=== PATIENT | female | born 1970 | race Caucasian/White ===

== ENCOUNTER 2023-11-18 09:58 | Emergency (ER) | payer OTHER, SELFPAY ==
[2023-11-18 10:18] VITALS: BP 134/83
[2023-11-18 11:36] LABS: % Basophils 0.5 % (0-2); % Eosinophils 1.9 % (0-6); % Immature Granulocytes 0.5 % (0-0.5); % Lymphocytes 16.3 % (20.5-51.1); % Monocytes 5.3 % (1.7-9.3); % Neutrophils 75.5 % (42.2-75.2); Absolute Eosinophils 0.2 10^3/uL (0-0.7); Absolute Lymphocytes 1.3 10^3/uL (1.2-3.4); Absolute Monocytes 0.4 10^3/uL (0.1-0.6); Absolute Neutrophils 6.1 10^3/uL (1.4-6.5); Hematocrit 35.7 % (37.0-47.0); Hemoglobin 12.4 g/dL (12.0-16.0); Mean Corp Hgb Conc. 34.7 g/dL (33.0-37.0); Mean Corpuscular Hgb 30.5 pg (27.0-31.0); Mean Corpuscular Volume 87.7 fL (81.0-99.0); Mean Platelet Volume 9.7 fL (7.4-10.4); Nucleated Red Blood Cells % 0 %; Platelet Count 236 10^3/uL (130-400); Red Blood Cell Count 4.07 10^6/uL (4.20-5.40); Red Cell Dist. Width 12.1 % (11.5-14.5)
[2023-11-18 11:59] LABS: ALT (SGPT) 25 U/L (0-35); AST (SGOT) 32 U/L (14-36); Albumin 4.2 g/dl (3.5-5.0); Alkaline Phosphatase 85 U/L (38-126); Blood Urea Nitrogen 20 mg/dl (7-17); Calcium 9.6 mg/dl (8.4-10.2); Carbon Dioxide 29 mmol/L (22-30); Chloride 105 mmol/L (98-107); Glucose 132 mg/dl (70-99); Lipase 128 U/L (23-300); Potassium 4.4 mmol/L (3.5-5.1); Sodium 137 mmol/L (135-145); Total Bilirubin 0.6 mg/dl (0.2-1.3); Total Protein 6.9 g/dl (6.3-8.2); eGFR > 60.00
--- NOTE | 2023-11-18 12:47 | ED.GENMED ---
History of Present Illness
General
Chief Complaint: Abdominal Pain
Source: patient
Time Seen by Provider: 11/18/23 11:50
History of Present Illness
History of Present Illness:
53-year-old female with past medical history of anxiety presenting to the emergency department for evaluation after she experienced sudden onset right upper quadrant abdominal pain associated with nausea about 30 minutes prior to arrival to the
emergency department. Pain is described to be moderate to severe, now currently felt more in the right lower part of the abdomen radiating towards her groin, constant and sharp. Patient denies any fevers, chills, rigors. Had been in her usual
state of health prior to the symptoms starting. She did not take thing for pain prior to arrival. Notes she has had a kidney stone before however this feels different as she is currently endorsing urinary frequency. Denies any dysuria, urgency,
hematuria. No other concerns at this time.
Past History
Past History
ED Past Medical History: Psychiatric
ED Past Surgical History:
Social History
Tobacco: Non-smoker
Alcohol: Occasional
Drug: None
Personal:
Living: with family
Review of Systems
Review of Systems
All Other Systems: ROS reviewed and negative except as documented in HPI and ROS
Phy Exam
Physical Exam
Physical Exam:
GENERAL: Alert , appears very uncomfortable, constant moaning
EYE: clear conjunctiva b/l
HEAD: NCAT
ENT: o/p clr, mmm.
CARDIAC: Regular rate and rhythm .
LUNGS: Clear breath sounds bilaterally, no acute respiratory distress, no wheezes/rales/rhonchi
ABDOMEN: Soft, tenderness within entirety of right abdomen, no r/g, no CVAT
NEUROLOGICAL: Alert and oriented
SKIN: Warm and dry, skin intact.
MUSCULOSKELETAL: No edema, well perfused.
PSYCH: Normal and appropriate interaction.
Scores
Heart Failure Risk
Heart Failure Risk Score: Not Applicable
Heart Score for Chest Pain Patients
STEMI patient?: Not applicable
Withdrawal Assessment of Alcohol
Withdrawal Assessment Completed?: Not applicable
Course
Orders/Labs/Results
Orders:
Orders
11/18/23 11:11
IV Insert/Care/Rem.- Treatment PRN
11/18/23 11:21
Complete Blood Count/With Diff Urgent
Comprehensive Metabolic Panel Urgent
Lipase Urgent
11/18/23 11:50
US Abdomen Complete/Upper Urgent
Comment:
Reason For Exam: RUQ pain
11/18/23 11:57
Ketorolac [Toradol] 30 mg IV NOW STA
Ondansetron Injectable [Zofran] 4 mg IV NOW STA
11/18/23 12:43
Ketorolac [Toradol] 60 mg IM NOW STA
Ondansetron Orally Disint [Zofran Odt (Orally Disintegrating)] 4 mg PO NOW STA
11/18/23 12:45
CT Abd/pel Without Iv Or Oral Urgent
Comment:
Reason For Exam: right flank pain, urinary urgency
Abnormal Lab Results
11/18/23
11:21
RBC 4.07 L 10^6/uL
(4.20-5.40)
Hct 35.7 L %
(37.0-47.0)
Neutrophils % 75.5 H %
(42.2-75.2)
Lymphocytes % 16.3 L %
(20.5-51.1)
BUN 20 H mg/dl
(7-17)
Glucose 132 H mg/dl
(70-99)
11/18/23 11:21
11/18/23 11:21
Vital Signs
Initial and Last Documented VS:
Initial Vital Signs
Temp Pulse Resp BP Pulse Ox
98.2 F 78 18 134/83 98
11/18/23 10:18 11/18/23 10:18 11/18/23 10:18 11/18/23 10:18 11/18/23 10:18
Last Documented Vital Signs
Temp Pulse Resp BP Pulse Ox
98.2 F 68 18 134/79 98
11/18/23 10:18 11/18/23 15:54 11/18/23 15:54 11/18/23 15:54 11/18/23 10:18
MDM/Problems Addressed
Differential Diagnosis Includes:
Cholelithiasis, cholecystitis, renal/ureteral colic, urinary tract infection/pyelonephritis
MDM/Problems Addressed:
53-year-old female presenting to the emergency department for evaluation of sudden onset right-sided abdominal pain, initially in the right upper quadrant but now in the mid to lower abdomen radiating to the groin. Given pain started more in the
right upper quadrant will obtain ultrasound to evaluate for possible gallstones/cholecystitis. If this is negative I do have some suspicion that there could be renal/ureteral colic or UTI as potential cause for symptoms. Labs and urine ordered.
Pain control with Toradol and Zofran. Reassessment following
*Radiology
Radiology exam reviewed: radiology read reviewed
*Pulse Oximetry
Patient hypoxic: no
*Critical Care Note
Total Time (30-74mins, 75-104mins- exclusive of procedures): Not Applicable
Comment
Comment:
Ultrasound shows diffuse hepatic steatosis and mild hepatomegaly. No evidence for cholelithiasis or cholecystitis. CT ordered. Disposition pending
Patient Management
Escalation/DeEscalation of care consider admission/obs:
Patient's CAT scan showed a mild right acute hydroureteronephrosis secondary to 3.7 mm obstructing stone within the distal right ureter. Patient did note some improvement with medicine while here. She was provided with a printout of the CT report.
Sent home with medications for symptomatic relief. Aware of return precautions to the ER. Urology follow-up information provided. Patient is otherwise stable for discharge home.
ED Attending Note
-
Portions of this chart may have been created with voice recognition software.� Occasional wrong word or��sound alike� substitutions may have occurred due to the inherent limitations of voice recognition software.
Discharge Plan
Departure
Patient Disposition: Home (Routine Discharge)
Date of Disposition: 11/18/23
Time of Disposition: 15:18
Patient with high blood pressure during this ER visit?: No
Discharge Problem:
Ureterolithiasis
Instructions: Kidney Stones (DC)
Prescriptions:
New
naproxen 500 mg tablet
500 mg PO BID PRN (Reason: Pain) Qty: 15 0RF
hydrocodone-acetaminophen 5-300 mg tablet
1 tab PO BID PRN (Reason: Pain) Qty: 8 0RF
tamsulosin [Flomax] 0.4 mg capsule
0.4 mg PO DAILY Qty: 10 0RF
ondansetron 4 mg tablet,disintegrating
4 mg PO TIDPRN PRN (Reason: nausea/vomiting) Qty: 9 0RF
oxycodone-acetaminophen [Percocet] 5-325 mg tablet
1 tab PO Q8H PRN (Reason: Pain) Qty: 8 0RF
Referrals:
Maldonado Ramos MD [Active] - (Urology)
Interventions
Interventions:
*Risk Screen - Suicide Last Done: 11/18/23 10:18
*General Assessment Last Done: 11/18/23 10:18
*Neglect/Abuse Screening Last Done: 11/18/23 10:18
*Nursing Disposition Last Done: 11/18/23 15:54
[facility] Assessment Last Done: 11/18/23 15:51
Discharge Date and Time
Discharge Date/Time: 11/18/23 16:06
Print Language: ROMANSH
[2023-11-18] MEDS: ZOFRAN ODT (ORALLY DISINTEGRATING) 4 MG PO (12:52)
[2023-11-18] MEDS: TORADOL 60 MG IM (12:53)
[2023-11-18 15:51] VITALS: BP 134/79
[2023-11-18 15:54] VITALS: BP 134/79
== END 2023-11-18 16:06 | disposition home or self-care (01) ==
LOC: EMR 09:58
PROVIDERS: EMERGENCY PHYSICIAN Student in an Organized Health Care Education/Training Program; FAMILY PHYSICIAN Family Medicine
DX: N13.2 Hydronephrosis with renal and ureteral calculous obstruction (principal); R11.0 Nausea; R16.0 Hepatomegaly, not elsewhere classified; K76.0 Fatty (change of) liver, not elsewhere classified; F41.9 Anxiety disorder, unspecified; Z87.442 Personal history of urinary calculi; Z88.8 Allergy status to other drugs, medicaments and biological substances
CPT/HCPCS: 99284; 96372; 74176; 76700; 80053; 83690; 85025